=== PATIENT | female | born 2000 | race American Indian/Alaskan Native ===

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

== ENCOUNTER 2020-09-08 03:31 | Emergency (ER) | payer MEDICAID ==
[2020-09-08 03:58] VITALS: BP 102/88
[2020-09-08] MEDS ORDERED: IBUPROFEN 600 MG TAB PO ONE ×2 (04:56→04:58)
[2020-09-08] MEDS ORDERED: predniSONE 20 MG TAB PO ONE (04:56)
[2020-09-08] MEDS ORDERED: AMOXICILLIN 500 MG CAP PO ONE (04:56)
--- NOTE | 2020-09-08 04:56 | Emergency Department Report ---
- General Chief Complaint: Chest Pain Stated Complaint: CHEST PAIN;SORE THROAT Source: patient Mode of arrival: Ambulatory Limitations: No Limitations - History of Present Illness Initial Comments: Patient is a nulliparous 20-year-old -[place] female with no past medical history who presents to the ED with complaint of acute onset persistent sore throat, dysphagia, dry cough, nasal and sinus congestion, frontal sinus pressure and headache for the last 1 week. Patient states that she has been taking [id number] medication with no relief. Patient states that no one else at home is had similar symptoms. Patient denies fever, chills, nausea, vomiting, shortness of breath, chest pain, dizziness, syncope, diarrhea, dysuria, urinary frequency and urgency or abdominal pain. MD Complaint: cough, sore throat, rhinorrhea, nasal congestion, sinus pain, other (headache) -: Sudden, week(s) (1) Severity: moderate Severity scale (0 -10): 5 Quality: sharp, aching Consistency: constant Improves With: nothing Worsens With: nothing Associated Symptoms: denies other symptoms, headache, rhinorrhea, nasal congestion, sore throat, cough. denies: fever, chills, myalgias, stiff neck, chest pain, abdominal pain, nausea, vomiting, diarrhea, dysuria, rash, confusion, right sweats, epistaxis, hoarseness, ear pain, other Treatments Prior to Arrival: none - Related Data Previous Rx's Medication Instructions Recorded Last Taken Type Fluconazole (Nf) [Diflucan TAB] 150 mg PO ONCE 3 Days #3 tablet 03/27/19 Unknown Rx Sulfamethoxazole/Trimethoprim 1 each PO BID 5 Days #1 tablet 03/27/19 Unknown Rx [Bactrim DS TAB] Phenazopyridine [Pyridium] 200 mg PO TID PRN #6 tab 04/10/19 Unknown Rx Sulfamethoxazole/Trimethoprim 1 each PO BID #6 tablet 04/10/19 Unknown Rx [Bactrim DS TAB] Azithromycin [Zithromax Z-SUMMER] 250 mg PO DAILY #6 tablet 09/08/20 Unknown Rx Brompheniramine/Pseudoephed/Dm 5 ml PO Q6H PRN #118 ml 09/08/20 Unknown Rx [Bromfed Dm Cough Syrup] Cetirizine HCl [Zyrtec 10mg tab] 10 mg PO DAILY #30 tablet 09/08/20 Unknown Rx Ibuprofen [Motrin] 600 mg PO Q8H PRN #24 tablet 09/08/20 Unknown Rx predniSONE [Deltasone] 40 mg PO QDAY #10 tab 09/08/20 Unknown Rx Allergies Allergy/AdvReac Type Severity Reaction Status Date / Time No Known Allergies Allergy Unverified 09/08/20 03:47 ED Review of Systems ROS: Stated complaint: CHEST PAIN;SORE THROAT Other details as noted in HPI Constitutional: denies: chills, fever Eyes: denies: eye pain, eye discharge, vision change ENT: throat pain, congestion, other (Frontal sinus pressure). denies: ear pain Respiratory: cough. denies: shortness of breath, wheezing Cardiovascular: denies: chest pain, palpitations Endocrine: no symptoms reported Gastrointestinal: denies: abdominal pain, nausea, diarrhea Genitourinary: denies: urgency, dysuria, discharge Musculoskeletal: denies: back pain, joint swelling, arthralgia Skin: denies: rash, lesions Neurological: headache. denies: weakness, paresthesias Psychiatric: denies: anxiety, depression Hematological/Lymphatic: denies: easy bleeding, easy bruising ED Past Medical Hx - Past Medical History Previous Medical History?: No - Surgical History Past Surgical History?: No - Social History Smoking Status: Never Smoker Substance Use Type: None - Medications Home Medications: Home Medications Medication Instructions Recorded Confirmed Last Taken Type Fluconazole (Nf) [Diflucan TAB] 150 mg PO ONCE 3 Days #3 tablet 03/27/19 Unknown Rx Sulfamethoxazole/Trimethoprim 1 each PO BID 5 Days #1 tablet 03/27/19 Unknown Rx [Bactrim DS TAB] Phenazopyridine [Pyridium] 200 mg PO TID PRN #6 tab 04/10/19 Unknown Rx Sulfamethoxazole/Trimethoprim 1 each PO BID #6 tablet 04/10/19 Unknown Rx [Bactrim DS TAB] Azithromycin [Zithromax Z-SUMMER] 250 mg PO DAILY #6 tablet 09/08/20 Unknown Rx Brompheniramine/Pseudoephed/Dm 5 ml PO Q6H PRN #118 ml 09/08/20 Unknown Rx [Bromfed Dm Cough Syrup] Cetirizine HCl [Zyrtec 10mg tab] 10 mg PO DAILY #30 tablet 09/08/20 Unknown Rx Ibuprofen [Motrin] 600 mg PO Q8H PRN #24 tablet 09/08/20 Unknown Rx predniSONE [Deltasone] 40 mg PO QDAY #10 tab 09/08/20 Unknown Rx ED Physical Exam - General Limitations: No Limitations General appearance: alert, in no apparent distress - Head Head exam: Present: atraumatic, normocephalic, normal inspection - Eye Eye exam: Present: normal appearance, PERRL, EOMI Pupils: Present: normal accommodation - ENT ENT exam: Present: mucous membranes moist, TM's normal bilaterally, normal external ear exam, other (Erythematous oropharynx with mildly swollen left tonsils, midline uvula; grossly congested nasal passages with palpable maxillary sinus tenderness) - Neck Neck exam: Present: normal inspection, lymphadenopathy - Respiratory Respiratory exam: Present: normal lung sounds bilaterally. Absent: respiratory distress, wheezes, rales, rhonchi, chest wall tenderness, accessory muscle use, decreased breath sounds, prolonged expiratory - Cardiovascular Cardiovascular Exam: Present: regular rate, normal rhythm, normal heart sounds. Absent: systolic murmur, diastolic murmur, rubs, gallop - GI/Abdominal GI/Abdominal exam: Present: soft, normal bowel sounds. Absent: tenderness, guarding, rebound, hyperactive bowel sounds, hypoactive bowel sounds, organomegaly - Extremities Exam Extremities exam: Present: normal inspection, full ROM, normal capillary refill - Back Exam Back exam: Present: normal inspection, full ROM. Absent: tenderness, CVA tenderness (R), CVA tenderness (L), muscle spasm, paraspinal tenderness - Neurological Exam Neurological exam: Present: alert, oriented X3, CN II-XII intact, normal gait, reflexes normal - Psychiatric Psychiatric exam: Present: normal affect, normal mood - Skin Skin exam: Present: warm, dry, intact, normal color. Absent: rash ED Course Vital Signs 09/08/20 03:51 Temperature 98.4 F Pulse Rate 80 Respiratory 18 Rate Blood Pressure 102/88 [Left] O2 Sat by Pulse 100 Oximetry ED Medical Decision Making - Medical Decision Making This is a nulliparous 20-year-old -[place] female with no past medical history who presents to the ED with complaint of acute onset persistent sore throat, dysphagia, dry cough, nasal and sinus congestion, frontal sinus pressure and headache for the last 1 week. Patient states that she has been taking [id number] medication with no relief. Patient states that no one else at home is had similar symptoms. In the ED, patient is alert and oriented x3 and is not in distress. Patient was treated in the ED for pain, was given initial oral antibiotics based on the physical exam findings. Patient was therefore discharged home on medications and advised to follow-up with her primary care physician in 5 to 7 days for reevaluation. Patient advised return to the ED immediately if symptoms get worse. - Differential Diagnosis Sinusitis; URI; bronchitis; pharyngitis; pneumonia; Critical care attestation.: If time is entered above; I have spent that time in minutes in the direct care of this critically ill patient, excluding procedure time. ED Disposition Clinical Impression: Acute bacterial tonsillitis, Acute upper respiratory infection Acute pharyngitis Qualifiers: Pharyngitis/tonsillitis etiology: unspecified etiology Qualified Code(s): J02.9 - Acute pharyngitis, unspecified Acute maxillary sinusitis Qualifiers: Recurrence: non-recurrent Qualified Code(s): J01.00 - Acute maxillary sinusitis, unspecified Acute bronchitis Qualifiers: Bronchitis organism: unspecified organism Qualified Code(s): J20.9 - Acute bronchitis, unspecified Disposition: DC-01 TO HOME OR SELFCARE Is pt being admited?: No Does the pt Need Aspirin: No Condition: Stable Instructions: Acute Bronchitis (ED), Upper Respiratory Infection, Adult, [id number], Tonsillitis, [id number]-[id number], Acute Bronchitis, Adult, [id number], Sore Throat, [id number], Sinusitis, Adult, [id number] Additional Instructions: Take medication with food, drink plenty of fluids and follow-up with your primary care physician in 7 to 10 days for reevaluation. Return to the ED imme diately if symptoms get worse. Prescriptions: Brompheniramine/Pseudoephed/Dm [Bromfed Dm Cough Syrup] 5 ml PO Q6H PRN #118 ml PRN Reason: Cough predniSONE [Deltasone] 40 mg PO QDAY #10 tab Ibuprofen [Motrin] 600 mg PO Q8H PRN #24 tablet PRN Reason: Pain Azithromycin [Zithromax Z-SUMMER] 250 mg PO DAILY #6 tablet Cetirizine HCl [Zyrtec 10mg tab] 10 mg PO DAILY #30 tablet Referrals: [facility] [Provider Group] - 7-10 days Time of Disposition: 04:52 Print Language: GUAMANIAN
[2020-09-08] MEDS ORDERED: predniSONE 20 MG TAB ONE (04:58)
--- NOTE | 2020-09-12 08:38 | Electrocardiograph Report ---
[facility] Test Date: 2020-09-08 Test Time: 04:05:28 Pat Name: SHEREE AVENDAÑO Department: Room: Gender: F [employer] Supervisor: CARLOS ALBERTO : 2000 Requested By: SIXTO DICKINSON Order Number: [id number] Reading MD: Edwin Lara Measurements Intervals [place] Rate: 75 P: 73 MI: 149 QRS: 83 QRSD: 81 T: 79 QT: 383 QTc: 427 Interpretive Statements Sinus rhythm Nonspecific T abnrm, anterolateral leads No previous ECG available for comparison Electronically Signed On 09-12-2020 5:38:19 PDT by Edwin Lara
== END 2020-09-08 05:20 | disposition home or self-care (01) ==
LOC: ED 03:31
DX: J02.8 Acute pharyngitis due to other specified organisms (principal); B96.89 Other specified bacterial agents as the cause of diseases classified elsewhere; J20.9 Acute bronchitis, unspecified; J01.00 Acute maxillary sinusitis, unspecified; Z79.899 Other long term (current) drug therapy
CPT/HCPCS: 93005; 99282; J7512